=== PATIENT | male | born 1955 | race Caucasian/White ===

== ENCOUNTER 2018-12-21 08:18 | Inpatient (IN) | payer MEDICAID ==
[~2018-12-21] VITALS: Ht 156.5 cm; Wt 101.8 kg
[2018-12-21] MEDS ORDERED: AMLO10TA80 PO (12:06)
[2018-12-21] MEDS ORDERED: ATOR-2 PO (12:06)
[2018-12-21] MEDS ORDERED: CARV3.1242 PO (12:06)
[2018-12-21] MEDS ORDERED: GLIM4TAB2 PO (12:06)
[2018-12-21] MEDS ORDERED: CHLO25TA2 PO (12:06)
[2018-12-21] MEDS ORDERED: LISI40TA4 PO (12:06)
[2018-12-21] MEDS ORDERED: ASPI-1393 PO (12:06)
[2018-12-21] MEDS ORDERED: BACITRACIN 50,000 UNITS/VIAL ONE (19:46)
[2018-12-21] MEDS ORDERED: BUPIVACAINE HCL/PF 0.5% (5MG/ML) 10ML ONE (19:46)
[2018-12-21] MEDS ORDERED: LIDOCAINE HCL 1% 20ML VIAL (Pyxis) INJ ONE (19:46)
[2018-12-21] MEDS ORDERED: ROCURONIUM BROMIDE 10MG/ML VIAL 5ML IV ONE ×2 (19:49→21:06)
[2018-12-21] MEDS ORDERED: PROPOFOL 200MG/20ML VIAL IV ONE (19:49)
[2018-12-21] MEDS ORDERED: MIDAZOLAM HCL 2 MG/2 ML VIAL ONE (19:49)
[2018-12-21] MEDS ORDERED: FENTANYL CITRATE/PF 50MCG/ML 2ML VIAL ONE (19:49)
[2018-12-21] MEDS ORDERED: SODIUM CHLORIDE 0.9% 10ML VIAL ONE (20:00)
[2018-12-21] MEDS ORDERED: CEFAZOLIN SODIUM 1000MG/VIAL ONE (20:00)
[2018-12-21] MEDS ORDERED: LIDOCAINE HCL/PF 1% 10 MG/ML 5ML VIAL ONE (20:00)
[2018-12-21] MEDS ORDERED: ONDANSETRON HCL 4MG/2ML INJ ONE (20:05)
[2018-12-21] MEDS ORDERED: CEFOXITIN 2G in DEXTROSE 5% WATER 100ML IV NR (20:45)
[2018-12-21] MEDS ORDERED: GENTAMICIN SULF 40MG/ML 2ML VIAL ONE (20:49)
[2018-12-21] MEDS ORDERED: LEVOFLOXACIN 500MG PREMIX 100 ML IV ONE (20:49)
[2018-12-21] MEDS ORDERED: NEOSTIGMINE METHYLSULFATE 1MG/ML 10 ML VIAL ONE (22:11)
[2018-12-21] MEDS ORDERED: GLYCOPYRROLATE 0.2 MG/ML 2ML VIAL ONE (22:11)
[2018-12-21] MEDS ORDERED: HYDROMORPHONE HCL/PF 2MG/ML CPJ IV PRN ×2 (23:15→23:45)
[2018-12-21] MEDS ORDERED: MEPERIDINE HCL/PF 25MG/ML CPJ IV PRN (23:15)
[2018-12-21] MEDS ORDERED: METOCLOPRAMIDE HCL 10MG/2ML VIAL IV PRN (23:15)
[2018-12-21] MEDS ORDERED: DEXT 5%/0.45% NACL KCL 20MEQ/L 1,000 ML IV SCH (23:45)
[2018-12-21] MEDS ORDERED: ONDANSETRON HCL 4MG/2ML INJ IV PRN (23:45)
[2018-12-22] VITALS (45 sets, daily range): BP systolic 80–141; BP diastolic 39–85
[2018-12-22 00:12] LABS: BG CARBOXYHEMOGLOBIN 0.1 % (0.5-1.5); BG DEOXYHEMOGLOBIN 5.4 % (0.0-5.0); BG FRACTION INSPIRED OXYGEN 100; BG METHEMOGLOBIN 0.5 % (0.0-1.5); BG OXYGEN SATURATION 94.6 % (92.0-98.5); BG PCO2 > 183.4 mmHg (35.0-45.0); BG PH 6.731 (7.350-7.450); BG PO2 117.7 mmHg (75.0-100.0); BG SAMPLE SITE RIGHT RADIAL; BG TOTAL HEMOGLOBIN 15.2 g/dL (12.0-18.0); BG VENT MODE MASK - NRB
[2018-12-22] MEDS ORDERED: NALOXONE HCL 0.4 MG/ML 1ML VIAL ONE (00:13)
[2018-12-22] MEDS ORDERED: SODIUM BICARBONATE 8.4% MEQ/ML 50ML VIAL IV ONE (00:48)
[2018-12-22] MEDS ORDERED: SODIUM BICARBONATE 8.4% 1 MEQ/ML 50ML SYR IV ONE (01:00)
[2018-12-22 01:27] LABS: BASOPHILS % 0.4 % (0.0-2.0); HEMATOCRIT. 42.4 % (42.0-52.0); HEMOGLOBIN. 14.3 g/dL (14.0-18.0); LYMPHOCYTES % 14.4 % (20.0-50.0); MEAN CORPUSCULAR VOLUME 88.7 fL (80.0-94.0); MEAN PLATELET VOLUME 7.9 fl (7.4-10.4); MONOCYTES % 3.9 % (2.0-8.0); NEUTROPHILS % 80.3 % (40.0-76.0); PLATELET 294 x1000/uL (130-400); RED BLOOD CELL COUNT 4.78 mill/uL (4.7-6.1); RED CELL DISTRIBUTION WIDTH 13.2 % (11.6-14.6)
[2018-12-22] MEDS ORDERED: DEXTROSE 50% WATER 50ML SYRINGE IV PRN ×2 (01:45→08:00)
[2018-12-22 02:05] LABS: INR 1.1; PROTHROMBIN TIME 10.9 sec (9.6-11.0)
[2018-12-22] MEDS ORDERED: NALOXONE HCL 0.4 MG/ML 1ML VIAL IV SCH (02:30)
[2018-12-22 02:35] LABS: BG BASE EXCESS -12.8 mmol/L (-2.0-2.0); BG CARBOXYHEMOGLOBIN 0.6 % (0.5-1.5); BG DEOXYHEMOGLOBIN 8.4 % (0.0-5.0); BG FRACTION INSPIRED OXYGEN 100; BG HCO3 ACT 13.8 mmol/L (22.0-26.0); BG METHEMOGLOBIN 0.3 % (0.0-1.5); BG OXYGEN SATURATION 91.5 % (92.0-98.5); BG OXYHEMOGLOBIN 90.7 % (94.0-97.0); BG PCO2 34.4 mmHg (35.0-45.0); BG PH 7.221 (7.350-7.450); BG SAMPLE SITE RIGHT BRACHIAL; BG TIDAL VOLUME(mL) 700 mL; BG TOTAL HEMOGLOBIN 13.8 g/dL (12.0-18.0); BG VENT MODE VENT - A/C; BG VENT RATE 16 set
[2018-12-22] MEDS ORDERED: SODIUM BICARBONATE 8.4% 1 MEQ/ML 50ML SYR IV SCH ×2 (03:00)
[2018-12-22] MEDS: PROPOFOL 10MG/ML 100ML 100 ML IV PRN ×2 (03:22→08:51)
[2018-12-22] MEDS: DEXT 5%/0.45% NACL 1000ML 1,000 ML IV SCH ×3 (03:32→23:08)
[2018-12-22] MEDS ORDERED: IOHEXOL-350 100 ML BOTTLE ONE (04:18)
[2018-12-22] MEDS ORDERED: SODIUM CHLORIDE 0.9% 200 ML IV ONE (04:45)
[2018-12-22 05:03] LABS: BG BASE EXCESS -6.4 mmol/L (-2.0-2.0); BG CARBOXYHEMOGLOBIN 0.2 % (0.5-1.5); BG FRACTION INSPIRED OXYGEN 100; BG HCO3 ACT 17.7 mmol/L (22.0-26.0); BG METHEMOGLOBIN 0.3 % (0.0-1.5); BG OXYHEMOGLOBIN 98.5 % (94.0-97.0); BG PCO2 30.9 mmHg (35.0-45.0); BG PH 7.375 (7.350-7.450); BG PO2 180.1 mmHg (75.0-100.0); BG SAMPLE SITE RIGHT BRACHIAL; BG TIDAL VOLUME(mL) 700 mL; BG TOTAL HEMOGLOBIN 12.3 g/dL (12.0-18.0); BG VENT MODE VENT - A/C; BG VENT RATE 16 set
[2018-12-22] MEDS: KETOROLAC 30MG/ML VIAL IV SCH (05:22)
[2018-12-22] MEDS: METOCLOPRAMIDE HCL 10MG/2ML VIAL IV SCH ×4 (05:23→23:45)
[2018-12-22 05:42] LABS: HEMATOCRIT. 34.4 % (42.0-52.0); HEMOGLOBIN. 12.1 g/dL (14.0-18.0); MEAN CORPUSCULAR HEMOGLOBIN 30.4 pg (28.0-32.0); MEAN CORPUSCULAR VOLUME 86.5 fL (80.0-94.0); PLATELET 237 x1000/uL (130-400); RED BLOOD CELL COUNT 3.98 mill/uL (4.7-6.1); RED CELL DISTRIBUTION WIDTH 13.1 % (11.6-14.6)
[2018-12-22 05:48] LABS: INR 1.1; PARTIAL THROMBOPLASTIN TIME 26.1 sec (23.4-31.0)
[2018-12-22 05:49] LABS: CHLORIDE 114 mEq/L (98-107)
[2018-12-22] MEDS: BLOOD SUGAR DIAGNOSTIC STRIP TEST SCH ×4 (07:55→20:56)
[2018-12-22 08:51] LABS: BG BASE EXCESS -3.4 mmol/L (-2.0-2.0); BG CARBOXYHEMOGLOBIN 0.1 % (0.5-1.5); BG DEOXYHEMOGLOBIN 1.3 % (0.0-5.0); BG FRACTION INSPIRED OXYGEN 80; BG HCO3 ACT 20.5 mmol/L (22.0-26.0); BG METHEMOGLOBIN 0.4 % (0.0-1.5); BG OXYGEN SATURATION 98.7 % (92.0-98.5); BG OXYHEMOGLOBIN 98.2 % (94.0-97.0); BG PCO2 32.9 mmHg (35.0-45.0); BG PH 7.412 (7.350-7.450); BG PO2 174.6 mmHg (75.0-100.0); BG SAMPLE SITE RIGHT BRACHIAL; BG TIDAL VOLUME(mL) 700 mL; BG TOTAL HEMOGLOBIN 11.6 g/dL (12.0-18.0); BG VENT MODE VENT - A/C; BG VENT RATE 16 set
[2018-12-22] MEDS: INSULIN LISPRO 100 UNITS/ML SUBCUT SCH ×4 (08:51→20:57)
[2018-12-22] MEDS: CHLORTHALIDONE 25MG TABLET PO SCH (08:52)
[2018-12-22] MEDS: ASPIRIN 81MG EC TABLET PO SCH (08:52)
[2018-12-22] MEDS: GLIMEPIRIDE 2MG TABLET PO SCH (08:52)
[2018-12-22] MEDS: AMLODIPINE 10MG TABLET PO SCH (08:53)
[2018-12-22] MEDS: ENOXAPARIN 30MG/0.3ML SYR SUBCUT SCH ×2 (08:53→20:42)
[2018-12-22] MEDS: CARVEDILOL 3.125 MG TABLET PO SCH ×2 (08:53→20:44)
[2018-12-22] MEDS: LISINOPRIL 40MG TABLET PO SCH (08:54)
[2018-12-22] MEDS ORDERED: ENOXAPARIN 40MG/0.4ML SYR SUBCUT SCH (09:00)
[2018-12-22] MEDS ORDERED: GLIMEPIRIDE 4 MG PO SCH (09:00)
[2018-12-22] MEDS ORDERED: MEDICATION NOT ON FORMULARY EA (Atorvastatin Calcium 80 MG) PO SCH (09:00)
[2018-12-22 12:52] LABS: BG BASE EXCESS -3.8 mmol/L (-2.0-2.0); BG CARBOXYHEMOGLOBIN 0.3 % (0.5-1.5); BG DEOXYHEMOGLOBIN 2.9 % (0.0-5.0); BG FRACTION INSPIRED OXYGEN 50; BG HCO3 ACT 19.8 mmol/L (22.0-26.0); BG METHEMOGLOBIN 0.3 % (0.0-1.5); BG OXYGEN SATURATION 97.1 % (92.0-98.5); BG OXYHEMOGLOBIN 96.5 % (94.0-97.0); BG PCO2 31.4 mmHg (35.0-45.0); BG PH 7.418 (7.350-7.450); BG PO2 88.7 mmHg (75.0-100.0); BG PRESSURE SUPPORT 14; BG SAMPLE SITE RIGHT BRACHIAL; BG TIDAL VOLUME(mL) 700 mL; BG TOTAL HEMOGLOBIN 11.8 g/dL (12.0-18.0); BG VENT MODE VENT - SIMV; BG VENT RATE 10 set
[2018-12-22] MEDS ORDERED: MAGNESIUM 4 G PREMIX 100 ML IV NR (13:00)
[2018-12-22 13:20] LABS: PLATELET ESTIMATE NORMAL
[2018-12-22] MEDS: HYDROMORPHONE HCL/PF 2MG/ML CPJ IV PRN ×3 (13:42→23:40)
[2018-12-22] MEDS: PIPERACILLIN/TAZ 3.375G PREMIX 50 ML IV SCH ×2 (13:43→20:42)
[2018-12-22 15:58] LABS: BG BASE EXCESS -3.9 mmol/L (-2.0-2.0); BG CARBOXYHEMOGLOBIN 0.3 % (0.5-1.5); BG DEOXYHEMOGLOBIN 4.6 % (0.0-5.0); BG FRACTION INSPIRED OXYGEN 45; BG HCO3 ACT 20.5 mmol/L (22.0-26.0); BG METHEMOGLOBIN 0.1 % (0.0-1.5); BG OXYGEN SATURATION 95.4 % (92.0-98.5); BG PCO2 35.1 mmHg (35.0-45.0); BG PH 7.385 (7.350-7.450); BG PO2 76.6 mmHg (75.0-100.0); BG PRESSURE SUPPORT 10; BG SAMPLE SITE RIGHT BRACHIAL; BG TOTAL HEMOGLOBIN 12.1 g/dL (12.0-18.0); BG VENT MODE VENT - CPAP
[2018-12-22] MEDS: ALBUTEROL (0.083%) 2.5MG/3ML NEB HHN SCH (20:25)
[2018-12-22] MEDS: ATORVASTATIN CALCIUM 40MG TABLET PO SCH (20:42)
[2018-12-22 21:26] LABS: BG BASE EXCESS -4.2 mmol/L (-2.0-2.0); BG CARBOXYHEMOGLOBIN 0.3 % (0.5-1.5); BG DEOXYHEMOGLOBIN 7.5 % (0.0-5.0); BG FRACTION INSPIRED OXYGEN 50; BG HCO3 ACT 20.2 mmol/L (22.0-26.0); BG METHEMOGLOBIN 0.1 % (0.0-1.5); BG OXYGEN SATURATION 92.5 % (92.0-98.5); BG OXYHEMOGLOBIN 92.1 % (94.0-97.0); BG PCO2 34.7 mmHg (35.0-45.0); BG PH 7.382 (7.350-7.450); BG SAMPLE SITE RIGHT RADIAL; BG TOTAL HEMOGLOBIN 11.9 g/dL (12.0-18.0); BG VENT MODE MASK - AEROSOL
[2018-12-23] VITALS (48 sets, daily range): BP systolic 96–163; BP diastolic 50–85
[2018-12-23] MEDS: KETOROLAC 30MG/ML VIAL IV SCH ×3 (00:02→11:50)
[2018-12-23] MEDS: ALBUTEROL (0.083%) 2.5MG/3ML NEB HHN SCH ×6 (00:19→21:12)
[2018-12-23] MEDS: METOCLOPRAMIDE HCL 10MG/2ML VIAL IV SCH ×4 (05:10→23:09)
[2018-12-23] MEDS: PIPERACILLIN/TAZ 3.375G PREMIX 50 ML IV SCH (05:10)
[2018-12-23 05:16] LABS: BASOPHILS % 0.3 % (0.0-2.0); EOSINOPHILS % 0.1 % (0.0-5.0); HEMATOCRIT. 33.2 % (42.0-52.0); HEMOGLOBIN. 11.3 g/dL (14.0-18.0); LYMPHOCYTES % 9.5 % (20.0-50.0); MEAN CORPUSCULAR HEMOGLOBIN 30.3 pg (28.0-32.0); MEAN CORPUSCULAR VOLUME 88.7 fL (80.0-94.0); MEAN PLATELET VOLUME 7.9 fl (7.4-10.4); NEUTROPHILS % 83.1 % (40.0-76.0); PLATELET 180 x1000/uL (130-400); RED BLOOD CELL COUNT 3.74 mill/uL (4.7-6.1); RED CELL DISTRIBUTION WIDTH 13.5 % (11.6-14.6)
[2018-12-23] MEDS: BLOOD SUGAR DIAGNOSTIC STRIP TEST SCH ×4 (07:50→20:58)
[2018-12-23] MEDS ORDERED: POTASSIUM CHLORIDE INJ 40 MEQ in DEXT 5% WATER 250 ML IV NR (08:00)
[2018-12-23] MEDS: ENOXAPARIN 30MG/0.3ML SYR SUBCUT SCH ×2 (08:03→20:48)
[2018-12-23] MEDS: ASPIRIN 81MG EC TABLET PO SCH (08:04)
[2018-12-23] MEDS: CHLORTHALIDONE 25MG TABLET PO SCH (08:04)
[2018-12-23] MEDS: GLIMEPIRIDE 2MG TABLET PO SCH (08:04)
[2018-12-23] MEDS: INSULIN LISPRO 100 UNITS/ML SUBCUT SCH ×4 (08:04→21:01)
[2018-12-23] MEDS: DEXT 5%/0.45% NACL 1000ML 1,000 ML IV SCH ×2 (08:04→17:46)
[2018-12-23] MEDS: CARVEDILOL 3.125 MG TABLET PO SCH ×2 (08:05→20:48)
[2018-12-23] MEDS: LISINOPRIL 40MG TABLET PO SCH (08:05)
[2018-12-23] MEDS: AMLODIPINE 10MG TABLET PO SCH (08:05)
[2018-12-23 08:25] LABS: BG BASE EXCESS -2.5 mmol/L (-2.0-2.0); BG CARBOXYHEMOGLOBIN 0.1 % (0.5-1.5); BG DEOXYHEMOGLOBIN 6.2 % (0.0-5.0); BG FRACTION INSPIRED OXYGEN 60; BG HCO3 ACT 22.5 mmol/L (22.0-26.0); BG METHEMOGLOBIN 0.2 % (0.0-1.5); BG OXYGEN SATURATION 93.8 % (92.0-98.5); BG OXYHEMOGLOBIN 93.5 % (94.0-97.0); BG PCO2 39.2 mmHg (35.0-45.0); BG PH 7.376 (7.350-7.450); BG PO2 67.9 mmHg (75.0-100.0); BG SAMPLE SITE RIGHT BRACHIAL; BG TOTAL HEMOGLOBIN 11.2 g/dL (12.0-18.0); BG VENT MODE MASK - AEROSOL
[2018-12-23 09:56] LABS: ETHANOL BLOOD < 10 mg/dL
[2018-12-23 10:01] LABS: T4 FREE 1.73 ng/dL (0.76-1.46)
[2018-12-23 10:06] LABS: FOLIC ACID (FOLATE) SERUM 11.9 ng/mL (>5.38)
[2018-12-23] MEDS: PIPERACILLIN/TAZOBACTAM 2.25 G in DEXTROSE 5% WATER 50 ML IV SCH ×3 (11:50→23:10)
[2018-12-23 12:04] LABS: *AMPHETAMINES SCREEN URINE NEGATIVE (NEGATIVE); *BARBITURATES SCREEN URINE NEGATIVE (NEGATIVE)
[2018-12-23 12:05] LABS: *BENZODIAZEPINES SCREEN URINE PRESUMTIVE POSITIVE (NEGATIVE); *COCAINE SCREEN URINE NEGATIVE (NEGATIVE); METHADONE URINE SCREEN NEGATIVE (NEGATIVE); OPIATES URINE SCREEN PRESUMTIVE POSITIVE (NEGATIVE); PHENCYCLIDINE URINE SCREEN NEGATIVE (NEGATIVE)
[2018-12-23 12:06] LABS: CANNABINOID URINE SCREEN NEGATIVE (NEGATIVE)
[2018-12-23 13:01] LABS: BG BASE EXCESS -1.3 mmol/L (-2.0-2.0); BG CARBOXYHEMOGLOBIN 0.3 % (0.5-1.5); BG DEOXYHEMOGLOBIN 7.8 % (0.0-5.0); BG HCO3 ACT 22.9 mmol/L (22.0-26.0); BG METHEMOGLOBIN 0.4 % (0.0-1.5); BG OXYGEN SATURATION 92.1 % (92.0-98.5); BG OXYHEMOGLOBIN 91.5 % (94.0-97.0); BG PCO2 36.5 mmHg (35.0-45.0); BG PH 7.416 (7.350-7.450); BG PO2 60.5 mmHg (75.0-100.0); BG SAMPLE SITE RIGHT RADIAL; BG TOTAL HEMOGLOBIN 11.1 g/dL (12.0-18.0); BG VENT MODE NASAL CANNULA
[2018-12-23] MEDS ORDERED: LIDOCAINE HCL/PF 1% 2ML VIAL ONE (13:34)
[2018-12-23] MEDS ORDERED: ACETAMINOPHEN 325MG TABLET PO PRN (17:00)
[2018-12-23] MEDS: ATORVASTATIN CALCIUM 40MG TABLET PO SCH (20:47)
[2018-12-23] MEDS: HYDROMORPHONE HCL/PF 2MG/ML CPJ IV PRN (20:47)
[2018-12-23] MEDS ORDERED: POTASSIUM CHLORIDE INJ 40 MEQ in DEXT 5% WATER 250 ML IV SCH (22:30)
[2018-12-24] VITALS (29 sets, daily range): BP systolic 97–159; BP diastolic 55–116
[2018-12-24] MEDS: ALBUTEROL (0.083%) 2.5MG/3ML NEB HHN SCH ×6 (00:48→20:07)
[2018-12-24] MEDS: HYDROMORPHONE HCL/PF 2MG/ML CPJ IV PRN ×2 (03:40→20:12)
[2018-12-24] MEDS: DEXT 5%/0.45% NACL 1000ML 1,000 ML IV SCH (03:44)
[2018-12-24 05:23] LABS: BASOPHILS % 0.5 % (0.0-2.0); EOSINOPHILS % 1.5 % (0.0-5.0); HEMATOCRIT. 29.8 % (42.0-52.0); HEMOGLOBIN. 10.4 g/dL (14.0-18.0); LYMPHOCYTES % 9.5 % (20.0-50.0); MEAN CORPUSCULAR HEMOGLOBIN 30.3 pg (28.0-32.0); MEAN CORPUSCULAR VOLUME 86.7 fL (80.0-94.0); MEAN PLATELET VOLUME 7.9 fl (7.4-10.4); NEUTROPHILS % 81.5 % (40.0-76.0); PLATELET 202 x1000/uL (130-400); RED BLOOD CELL COUNT 3.44 mill/uL (4.7-6.1); RED CELL DISTRIBUTION WIDTH 13.1 % (11.6-14.6)
[2018-12-24] MEDS: METOCLOPRAMIDE HCL 10MG/2ML VIAL IV SCH (05:26)
[2018-12-24] MEDS: PIPERACILLIN/TAZOBACTAM 2.25 G in DEXTROSE 5% WATER 50 ML IV SCH ×3 (05:26→18:10)
[2018-12-24] MEDS: BLOOD SUGAR DIAGNOSTIC STRIP TEST SCH ×4 (07:50→21:00)
[2018-12-24] MEDS: ENOXAPARIN 30MG/0.3ML SYR SUBCUT SCH ×2 (08:44→20:26)
[2018-12-24] MEDS: INSULIN LISPRO 100 UNITS/ML SUBCUT SCH ×4 (08:45→21:00)
[2018-12-24] MEDS: LISINOPRIL 40MG TABLET PO SCH (08:45)
[2018-12-24] MEDS: GLIMEPIRIDE 2MG TABLET PO SCH (08:46)
[2018-12-24] MEDS: CARVEDILOL 3.125 MG TABLET PO SCH ×2 (08:46→21:00)
[2018-12-24] MEDS: AMLODIPINE 10MG TABLET PO SCH (08:46)
[2018-12-24] MEDS: ASPIRIN 81MG EC TABLET PO SCH (08:46)
[2018-12-24] MEDS: CHLORTHALIDONE 25MG TABLET PO SCH (08:46)
[2018-12-24 09:04] LABS: BG BASE EXCESS -1.1 mmol/L (-2.0-2.0); BG CARBOXYHEMOGLOBIN 0.3 % (0.5-1.5); BG DEOXYHEMOGLOBIN 4.9 % (0.0-5.0); BG FRACTION INSPIRED OXYGEN 32; BG HCO3 ACT 23.7 mmol/L (22.0-26.0); BG METHEMOGLOBIN 0.2 % (0.0-1.5); BG OXYGEN SATURATION 95.1 % (92.0-98.5); BG OXYHEMOGLOBIN 94.6 % (94.0-97.0); BG PCO2 40.3 mmHg (35.0-45.0); BG PH 7.388 (7.350-7.450); BG SAMPLE SITE LEFT BRACHIAL; BG TOTAL HEMOGLOBIN 11.1 g/dL (12.0-18.0); BG VENT MODE NASAL CANNULA
[2018-12-24] MEDS: TRAMADOL 50MG TABLET PO PRN (09:14)
[2018-12-24] MEDS ORDERED: POTASSIUM CHLORIDE INJ 40 MEQ in DEXT 5% WATER 250 ML IV NR (10:00)
[2018-12-24 10:57] LABS: CLARITY URINE CLOUDY (CLEAR); COLOR URINE YELLOW (YELLOW); KETONES URINE NEGATIVE (NEGATIVE); LEUKOCYTE ESTERASE URINE NEGATIVE (NEGATIVE); NITRITE URINE NEGATIVE (NEGATIVE); OCCULT BLOOD URINE 1+ (NEGATIVE); PROTEIN URINE 1+ (NEGATIVE); SPECIFIC GRAVITY URINE 1.014 (1.005-1.030); UROBILINOGEN URINE 0.2 E.U./dL (0.2-1.0)
[2018-12-24] MEDS: ATORVASTATIN CALCIUM 40MG TABLET PO SCH (20:26)
[2018-12-25] VITALS (12 sets, daily range): BP systolic 119–166; BP diastolic 55–99
[2018-12-25] MEDS: ALBUTEROL (0.083%) 2.5MG/3ML NEB HHN SCH ×6 (00:03→22:20)
[2018-12-25] MEDS: PIPERACILLIN/TAZOBACTAM 2.25 G in DEXTROSE 5% WATER 50 ML IV SCH ×4 (02:39→18:08)
[2018-12-25 07:36] LABS: BASOPHILS % 0.3 % (0.0-2.0); EOSINOPHILS % 1.5 % (0.0-5.0); HEMATOCRIT. 30.8 % (42.0-52.0); HEMOGLOBIN. 10.8 g/dL (14.0-18.0); LYMPHOCYTES % 9.7 % (20.0-50.0); MEAN CORPUSCULAR HEMOGLOBIN 30.3 pg (28.0-32.0); MEAN PLATELET VOLUME 7.8 fl (7.4-10.4); MONOCYTES % 7.2 % (2.0-8.0); NEUTROPHILS % 81.3 % (40.0-76.0); PLATELET 240 x1000/uL (130-400); RED BLOOD CELL COUNT 3.58 mill/uL (4.7-6.1); RED CELL DISTRIBUTION WIDTH 12.8 % (11.6-14.6)
[2018-12-25 07:58] LABS: PHOSPHORUS 2.5 mg/dL (2.5-4.9)
[2018-12-25] MEDS: INSULIN LISPRO 100 UNITS/ML SUBCUT SCH ×4 (08:00→22:13)
[2018-12-25] MEDS: BLOOD SUGAR DIAGNOSTIC STRIP TEST SCH ×4 (08:09→21:00)
[2018-12-25] MEDS: TRAMADOL 50MG TABLET PO PRN ×2 (09:05→19:37)
[2018-12-25] MEDS: GLIMEPIRIDE 2MG TABLET PO SCH (09:06)
[2018-12-25] MEDS: ASPIRIN 81MG EC TABLET PO SCH (09:06)
[2018-12-25] MEDS: CARVEDILOL 3.125 MG TABLET PO SCH ×2 (09:06→19:39)
[2018-12-25] MEDS: ENOXAPARIN 30MG/0.3ML SYR SUBCUT SCH ×2 (09:07→22:14)
[2018-12-25] MEDS: LISINOPRIL 40MG TABLET PO SCH (09:07)
[2018-12-25] MEDS: AMLODIPINE 10MG TABLET PO SCH (09:07)
[2018-12-25] MEDS ORDERED: POTASSIUM CHLORIDE 20MEQ TABLET SR PO SCH (11:00)
[2018-12-25] MEDS ORDERED: POTASSIUM CHLORIDE INJ 40 MEQ in DEXT 5% WATER 250 ML IV SCH (12:00)
[2018-12-25] MEDS ORDERED: IPRATROPIUM/ALBUTEROL 0.5-3(2.5)MG/3ML NEB HHN PRN (14:00)
[2018-12-25] MEDS: ACETYLCYSTEINE 100MG/ML 10% VIAL 4ML INH SCH ×2 (14:59→22:21)
[2018-12-25] MEDS: ATORVASTATIN CALCIUM 40MG TABLET PO SCH (22:14)
[2018-12-25] MEDS ORDERED: POTASSIUM CHLORIDE 20MEQ TABLET SR PO NR (22:53)
[2018-12-26] VITALS (11 sets, daily range): BP systolic 125–153; BP diastolic 46–75
[2018-12-26] MEDS: PIPERACILLIN/TAZOBACTAM 2.25 G in DEXTROSE 5% WATER 50 ML IV SCH ×4 (01:05→18:53)
[2018-12-26] MEDS: ALBUTEROL (0.083%) 2.5MG/3ML NEB HHN SCH ×6 (02:13→20:29)
[2018-12-26 06:05] LABS: BASOPHILS % 0.4 % (0.0-2.0); EOSINOPHILS % 1.2 % (0.0-5.0); HEMATOCRIT. 30.7 % (42.0-52.0); HEMOGLOBIN. 10.8 g/dL (14.0-18.0); LYMPHOCYTES % 7.7 % (20.0-50.0); MEAN CORPUSCULAR HEMOGLOBIN 29.8 pg (28.0-32.0); MEAN CORPUSCULAR VOLUME 84.8 fL (80.0-94.0); MEAN PLATELET VOLUME 7.9 fl (7.4-10.4); MONOCYTES % 9.4 % (2.0-8.0); NEUTROPHILS % 81.3 % (40.0-76.0); PLATELET 273 x1000/uL (130-400); RED BLOOD CELL COUNT 3.62 mill/uL (4.7-6.1); RED CELL DISTRIBUTION WIDTH 12.9 % (11.6-14.6)
[2018-12-26 06:54] LABS: CHLORIDE 102 mEq/L (98-107)
[2018-12-26 07:00] LABS: PHOSPHORUS 1.8 mg/dL (2.5-4.9)
[2018-12-26 07:02] LABS: CREATINE KINASE 285 IU/L (39-308)
[2018-12-26] MEDS: BLOOD SUGAR DIAGNOSTIC STRIP TEST SCH ×4 (07:30→20:56)
[2018-12-26] MEDS: ACETYLCYSTEINE 100MG/ML 10% VIAL 4ML INH SCH (07:59)
[2018-12-26] MEDS: GLIMEPIRIDE 2MG TABLET PO SCH (09:18)
[2018-12-26] MEDS: ENOXAPARIN 30MG/0.3ML SYR SUBCUT SCH ×2 (09:18→20:56)
[2018-12-26] MEDS: AMLODIPINE 10MG TABLET PO SCH (09:19)
[2018-12-26] MEDS: LISINOPRIL 40MG TABLET PO SCH (09:19)
[2018-12-26] MEDS: CARVEDILOL 3.125 MG TABLET PO SCH (09:19)
[2018-12-26] MEDS: ASPIRIN 81MG EC TABLET PO SCH (09:19)
[2018-12-26] MEDS: INSULIN LISPRO 100 UNITS/ML SUBCUT SCH ×4 (09:21→20:56)
[2018-12-26] MEDS ORDERED: POTASSIUM CHLORIDE 20MEQ/PACKET PO SCH (12:00)
[2018-12-26] MEDS ORDERED: POTASSIUM CHLORIDE INJ 40 MEQ in DEXT 5% WATER 250 ML IV ONE (12:30)
[2018-12-26] MEDS ORDERED: POTASSIUM PHOS,M-BASIC-D-BASIC 20 MMOL in DEXT 5% WATER 243.3333 ML IV SCH (15:00)
[2018-12-26] MEDS: ATORVASTATIN CALCIUM 40MG TABLET PO SCH (20:55)
[2018-12-26] MEDS: CARVEDILOL 12.5MG TABLET PO SCH (20:55)
[2018-12-26] MEDS: GUAIFENESIN 600MG ER TABLET PO SCH (20:55)
[2018-12-27] VITALS (14 sets, daily range): BP systolic 99–150; BP diastolic 47–89
[2018-12-27] MEDS: PIPERACILLIN/TAZOBACTAM 2.25 G in DEXTROSE 5% WATER 50 ML IV SCH ×4 (00:04→18:27)
[2018-12-27] MEDS: ALBUTEROL (0.083%) 2.5MG/3ML NEB HHN SCH ×6 (00:41→20:12)
[2018-12-27 05:58] LABS: BASOPHILS % 0.4 % (0.0-2.0); EOSINOPHILS % 2.5 % (0.0-5.0); HEMATOCRIT. 29.8 % (42.0-52.0); HEMOGLOBIN. 10.6 g/dL (14.0-18.0); MEAN CORPUSCULAR VOLUME 84.4 fL (80.0-94.0); MEAN PLATELET VOLUME 8.1 fl (7.4-10.4); MONOCYTES % 11.1 % (2.0-8.0); PLATELET 259 x1000/uL (130-400); RED BLOOD CELL COUNT 3.53 mill/uL (4.7-6.1); RED CELL DISTRIBUTION WIDTH 12.8 % (11.6-14.6)
[2018-12-27 06:49] LABS: CHLORIDE 100 mEq/L (98-107)
[2018-12-27 07:01] LABS: PHOSPHORUS 2.5 mg/dL (2.5-4.9)
[2018-12-27] MEDS: BLOOD SUGAR DIAGNOSTIC STRIP TEST SCH ×4 (07:30→21:34)
[2018-12-27] MEDS: INSULIN LISPRO 100 UNITS/ML SUBCUT SCH ×4 (08:00→21:00)
[2018-12-27] MEDS: AMLODIPINE 10MG TABLET PO SCH (08:32)
[2018-12-27] MEDS: CARVEDILOL 12.5MG TABLET PO SCH ×2 (08:32→21:33)
[2018-12-27] MEDS: GUAIFENESIN 600MG ER TABLET PO SCH ×2 (08:32→21:33)
[2018-12-27] MEDS: ASPIRIN 81MG EC TABLET PO SCH (08:32)
[2018-12-27] MEDS: LISINOPRIL 40MG TABLET PO SCH (08:33)
[2018-12-27] MEDS: GLIMEPIRIDE 2MG TABLET PO SCH (08:33)
[2018-12-27] MEDS: ENOXAPARIN 30MG/0.3ML SYR SUBCUT SCH ×2 (08:33→21:34)
[2018-12-27] MEDS ORDERED: POTASSIUM CHLORIDE 20MEQ/PACKET PO NR ×2 (08:45→12:00)
[2018-12-27] MEDS ORDERED: MAGNESIUM 4 G PREMIX 100 ML IV NR (14:30)
[2018-12-27] MEDS ORDERED: POTASSIUM CHLORIDE INJ 40 MEQ in DEXT 5% WATER 250 ML IV SCH (18:00)
[2018-12-27] MEDS: ATORVASTATIN CALCIUM 40MG TABLET PO SCH (21:33)
[2018-12-27] MEDS: MAGNESIUM OXIDE 400MG TABLET PO SCH (21:33)
[2018-12-27] MEDS ORDERED: POTASSIUM CHLORIDE INJ 40 MEQ in SODIUM CHLORIDE 0.45% 1,000 ML IV SCH (22:00)
[2018-12-28] VITALS (10 sets, daily range): BP systolic 93–127; BP diastolic 41–75
[2018-12-28] MEDS: PIPERACILLIN/TAZOBACTAM 2.25 G in DEXTROSE 5% WATER 50 ML IV SCH ×5 (00:26→23:51)
[2018-12-28] MEDS: ALBUTEROL (0.083%) 2.5MG/3ML NEB HHN SCH ×6 (01:26→20:38)
[2018-12-28 06:58] LABS: BG BASE EXCESS 0.8 mmol/L (-2.0-2.0); BG CARBOXYHEMOGLOBIN 0.3 % (0.5-1.5); BG DEOXYHEMOGLOBIN 8.3 % (0.0-5.0); BG HCO3 ACT 24.3 mmol/L (22.0-26.0); BG METHEMOGLOBIN 0.3 % (0.0-1.5); BG OXYGEN SATURATION 91.6 % (92.0-98.5); BG OXYHEMOGLOBIN 91.1 % (94.0-97.0); BG PCO2 34.6 mmHg (35.0-45.0); BG PH 7.464 (7.350-7.450); BG PO2 61.6 mmHg (75.0-100.0); BG SAMPLE SITE RIGHT RADIAL; BG TOTAL HEMOGLOBIN 10.3 g/dL (12.0-18.0); BG VENT MODE ROOM AIR
[2018-12-28] MEDS: BLOOD SUGAR DIAGNOSTIC STRIP TEST SCH ×4 (07:32→21:00)
[2018-12-28] MEDS: INSULIN LISPRO 100 UNITS/ML SUBCUT SCH ×4 (08:00→21:00)
[2018-12-28 08:43] LABS: BASOPHILS % 0.5 % (0.0-2.0); EOSINOPHILS % 2.2 % (0.0-5.0); HEMATOCRIT. 29.1 % (42.0-52.0); HEMOGLOBIN. 10.3 g/dL (14.0-18.0); LYMPHOCYTES % 8.9 % (20.0-50.0); MEAN CORPUSCULAR HEMOGLOBIN 29.8 pg (28.0-32.0); MEAN CORPUSCULAR VOLUME 84.6 fL (80.0-94.0); MEAN PLATELET VOLUME 7.6 fl (7.4-10.4); MONOCYTES % 10.2 % (2.0-8.0); NEUTROPHILS % 78.2 % (40.0-76.0); PLATELET 282 x1000/uL (130-400); RED BLOOD CELL COUNT 3.44 mill/uL (4.7-6.1)
[2018-12-28] MEDS: ENOXAPARIN 30MG/0.3ML SYR SUBCUT SCH ×2 (08:43→22:18)
[2018-12-28] MEDS: GLIMEPIRIDE 2MG TABLET PO SCH (08:44)
[2018-12-28] MEDS: MAGNESIUM OXIDE 400MG TABLET PO SCH ×2 (08:44→22:18)
[2018-12-28] MEDS: ASPIRIN 81MG EC TABLET PO SCH (08:44)
[2018-12-28] MEDS: GUAIFENESIN 600MG ER TABLET PO SCH ×2 (08:44→22:17)
[2018-12-28] MEDS: POTASSIUM CHLORIDE 20MEQ TABLET SR PO SCH ×2 (08:44→17:26)
[2018-12-28] MEDS: AMLODIPINE 10MG TABLET PO SCH (08:45)
[2018-12-28] MEDS: LISINOPRIL 40MG TABLET PO SCH (08:45)
[2018-12-28 08:58] LABS: PHOSPHORUS 2.4 mg/dL (2.5-4.9)
[2018-12-28] MEDS ORDERED: POTASSIUM CHLORIDE 20MEQ TABLET SR PO NR ×2 (10:00→23:00)
[2018-12-28] MEDS: CARVEDILOL 12.5MG TABLET PO SCH ×2 (10:48→22:17)
[2018-12-28] MEDS ORDERED: POTASSIUM PHOS,M-BASIC-D-BASIC 20 MMOL in DEXT 5% WATER 243.3333 ML IV NR (11:30)
[2018-12-28] MEDS ORDERED: COR12 PO (13:52)
[2018-12-28] MEDS ORDERED: POTA20TA82 PO (13:52)
[2018-12-28] MEDS: ATORVASTATIN CALCIUM 40MG TABLET PO SCH (22:17)
[2018-12-29] VITALS: BP 127/66
[2018-12-29] MEDS: ALBUTEROL (0.083%) 2.5MG/3ML NEB HHN SCH ×4 (00:12→12:51)
[2018-12-29 04:00] VITALS: BP 118/58
[2018-12-29] MEDS: PIPERACILLIN/TAZOBACTAM 2.25 G in DEXTROSE 5% WATER 50 ML IV SCH ×3 (06:02→17:00)
[2018-12-29 07:19] LABS: BASOPHILS % 0.5 % (0.0-2.0); EOSINOPHILS % 3.4 % (0.0-5.0); HEMATOCRIT. 29.5 % (42.0-52.0); HEMOGLOBIN. 10.4 g/dL (14.0-18.0); LYMPHOCYTES % 12.9 % (20.0-50.0); MEAN CORPUSCULAR HEMOGLOBIN 30.3 pg (28.0-32.0); MEAN CORPUSCULAR VOLUME 85.5 fL (80.0-94.0); MEAN PLATELET VOLUME 8.1 fl (7.4-10.4); MONOCYTES % 13.5 % (2.0-8.0); NEUTROPHILS % 69.7 % (40.0-76.0); PLATELET 300 x1000/uL (130-400); RED BLOOD CELL COUNT 3.45 mill/uL (4.7-6.1); RED CELL DISTRIBUTION WIDTH 12.8 % (11.6-14.6)
[2018-12-29] MEDS: BLOOD SUGAR DIAGNOSTIC STRIP TEST SCH ×3 (07:30→17:00)
[2018-12-29] MEDS: INSULIN LISPRO 100 UNITS/ML SUBCUT SCH ×3 (08:00→17:01)
[2018-12-29 08:02] VITALS: BP 129/68
[2018-12-29 08:35] LABS: CHLORIDE 106 mEq/L (98-107)
[2018-12-29 08:41] LABS: PHOSPHORUS 2.9 mg/dL (2.5-4.9)
[2018-12-29] MEDS ORDERED: POTASSIUM CHLORIDE 20MEQ TABLET SR PO NR (09:15)
[2018-12-29] MEDS: MAGNESIUM OXIDE 400MG TABLET PO SCH (09:26)
[2018-12-29] MEDS: POTASSIUM CHLORIDE 20MEQ TABLET SR PO SCH ×2 (09:26→17:00)
[2018-12-29] MEDS: ASPIRIN 81MG EC TABLET PO SCH (09:26)
[2018-12-29] MEDS: GUAIFENESIN 600MG ER TABLET PO SCH (09:27)
[2018-12-29] MEDS: GLIMEPIRIDE 2MG TABLET PO SCH (09:27)
[2018-12-29] MEDS: ENOXAPARIN 30MG/0.3ML SYR SUBCUT SCH (09:28)
[2018-12-29] MEDS: CARVEDILOL 12.5MG TABLET PO SCH (09:28)
[2018-12-29 10:03] VITALS: BP 128/65
[2018-12-29] MEDS: AMLODIPINE 10MG TABLET PO SCH (10:08)
[2018-12-29] MEDS: LISINOPRIL 40MG TABLET PO SCH (10:08)
[2018-12-29 12:00] VITALS: BP 145/76
[2018-12-29 16:17] VITALS: BP 120/72
== END 2018-12-29 18:15 | disposition home or self-care (01) | DRG 230 ==
LOC: OR 08:18 → CVICU 18:00 → 5EST 12-24 12:55
PROVIDERS: ADMIT Specialist; ATTEND Specialist
PROC: 0DBB0ZZ Excision of Ileum, Open Approach (ICD-10-PCS; principal; 2018-12-21)
DX: Z43.2 Encounter for attention to ileostomy (principal); J95.821 Acute postprocedural respiratory failure; G92 Toxic encephalopathy; E44.0 Moderate protein-calorie malnutrition; E11.22 Type 2 diabetes mellitus with diabetic chronic kidney disease; I95.9 Hypotension, unspecified; N17.9 Acute kidney failure, unspecified; E87.2 Acidosis; E44.1 Mild protein-calorie malnutrition; N18.3 Chronic kidney disease, stage 3 (moderate); Y83.8 Other surgical procedures as the cause of abnormal reaction of the patient, or of later complication, without mention of misadventure at the time of the procedure; Y92.239 Unspecified place in hospital as the place of occurrence of the external cause; E78.00 Pure hypercholesterolemia, unspecified; E78.5 Hyperlipidemia, unspecified; E87.6 Hypokalemia; I44.30 Unspecified atrioventricular block; I12.9 Hypertensive chronic kidney disease with stage 1 through stage 4 chronic kidney disease, or unspecified chronic kidney disease; D64.9 Anemia, unspecified; R33.9 Retention of urine, unspecified; E83.42 Hypomagnesemia; J98.11 Atelectasis; N35.919 Unspecified urethral stricture, male, unspecified site; Z82.49 Family history of ischemic heart disease and other diseases of the circulatory system; Z83.3 Family history of diabetes mellitus; Z95.0 Presence of cardiac pacemaker; Z86.73 Personal history of transient ischemic attack (TIA), and cerebral infarction without residual deficits; Z79.84 Long term (current) use of oral hypoglycemic drugs; Z79.899 Other long term (current) drug therapy
CPT/HCPCS: 36415; 36600; 71045; 71275; 76770; 80048; 80305; 80320; 81003; 82140; 82248; 82375; 82550; 82607; 82746; 82805; 82962; 83036; 83605; 83735; 84100; 84132; 84133; 84439; 84443; 84478; 84481; 87070; 88305; 93005; 94002; 94640; C1893; J0690; J0694; J1170; J1580; J1650; J1815; J1885; J1956; J2250; J2310; J2405; J2543; J2704; J2710; J2765; J3010; J3475; J3480; J3490; J7060; J7608; J7611; J7620; Q9967; G0480

== ENCOUNTER 2019-01-10 14:43 | Inpatient (IN) | payer MEDICAID ==
[~2019-01-10] VITALS: Ht 193 cm; Wt 96.7 kg
[~2019-01-10 14:43] MED LIST: AMLO10TA80 PO; ASPI-1393 PO; ATOR-2 PO; COR12 PO; GLIM4TAB2 PO; LISI40TA4 PO; POTA20TA82 PO
[2019-01-10] MEDS ORDERED: DEXT 5%/LACTATED RINGERS 1,000 ML IV ONE (17:00)
[2019-01-10 17:45] LABS: BASOPHILS % 0.7 % (0.0-2.0); EOSINOPHILS % 3.1 % (0.0-5.0); HEMATOCRIT. 35.4 % (42.0-52.0); HEMOGLOBIN. 12.1 g/dL (14.0-18.0); LYMPHOCYTES % 17.6 % (20.0-50.0); MEAN CORPUSCULAR HEMOGLOBIN 29.4 pg (28.0-32.0); MEAN PLATELET VOLUME 7.7 fl (7.4-10.4); MONOCYTES % 8.9 % (2.0-8.0); NEUTROPHILS % 69.7 % (40.0-76.0); PLATELET 353 x1000/uL (130-400); RED BLOOD CELL COUNT 4.12 mill/uL (4.7-6.1)
[2019-01-10] MEDS ORDERED: LIDOCAINE HCL 1% 20ML VIAL (Pyxis) INJ ONE (17:45)
[2019-01-10] MEDS ORDERED: BUPIVACAINE HCL/PF 0.5% (5MG/ML) 10ML ONE ×2 (17:45→17:46)
[2019-01-10] MEDS ORDERED: BACITRACIN 50,000 UNITS/VIAL ONE (17:46)
[2019-01-10 17:52] LABS: CHLORIDE 104 mEq/L (98-107)
[2019-01-10] MEDS ORDERED: PROPOFOL 200MG/20ML VIAL IV ONE (19:04)
[2019-01-10] MEDS ORDERED: MIDAZOLAM HCL 5 MG/5 ML VIAL ONE (19:04)
[2019-01-10] MEDS ORDERED: SUCCINYLCHOLINE CHLORIDE 200MG/10ML IV ONE (19:04)
[2019-01-10] MEDS ORDERED: CEFAZOLIN SODIUM 1000MG/VIAL ONE (19:05)
[2019-01-10] MEDS ORDERED: ACETAMINOPHEN 325MG TABLET PO PRN (19:45)
[2019-01-10] MEDS ORDERED: HYDROCODONE/ACETAMINOPHEN 5/325MG TABLET PO PRN (19:45)
[2019-01-10] MEDS ORDERED: IPRATROPIUM/ALBUTEROL 0.5-3(2.5)MG/3ML NEB HHN PRN (19:45)
[2019-01-10] MEDS ORDERED: LORAZEPAM 0.5MG TABLET PO PRN (19:45)
[2019-01-10] MEDS ORDERED: ONDANSETRON HCL 4MG/2ML INJ IV PRN (19:45)
[2019-01-10] MEDS ORDERED: CLONIDINE 0.1MG TABLET PO PRN (19:45)
[2019-01-10] MEDS ORDERED: CARVEDILOL 12.5MG TABLET PO SCH (21:00)
[2019-01-10] MEDS ORDERED: MORPHINE SULFATE 2 MG/ML CPJ (NOT FOR IM USE) IV PRN (21:17)
[2019-01-10] MEDS ORDERED: LACTATED RINGERS 1,000 ML IV SCH (23:00)
[2019-01-10] MEDS ORDERED: AMLODIPINE 10MG TABLET PO NR (23:00)
[2019-01-10] MEDS ORDERED: DEXTROSE 50% WATER 50ML SYRINGE IV PRN (23:45)
[2019-01-11] VITALS (7 sets, daily range): BP systolic 97–126; BP diastolic 44–62
[2019-01-11] MEDS: GLIMEPIRIDE 2MG TABLET PO SCH (06:31)
[2019-01-11] MEDS: BLOOD SUGAR DIAGNOSTIC STRIP TEST SCH ×4 (06:39→21:00)
[2019-01-11 07:12] LABS: BASOPHILS % 0.6 % (0.0-2.0); EOSINOPHILS % 3.3 % (0.0-5.0); HEMATOCRIT. 29.3 % (42.0-52.0); HEMOGLOBIN. 10.4 g/dL (14.0-18.0); LYMPHOCYTES % 18.2 % (20.0-50.0); MEAN CORPUSCULAR HEMOGLOBIN 30.8 pg (28.0-32.0); MEAN CORPUSCULAR VOLUME 86.3 fL (80.0-94.0); MEAN PLATELET VOLUME 7.9 fl (7.4-10.4); NEUTROPHILS % 68.9 % (40.0-76.0); PLATELET 287 x1000/uL (130-400); RED BLOOD CELL COUNT 3.39 mill/uL (4.7-6.1)
[2019-01-11 07:33] LABS: CHLORIDE 108 mEq/L (98-107)
[2019-01-11 07:40] LABS: LDL CHOLESTEROL 60 mg/dL (5-100)
[2019-01-11 07:42] LABS: HDL CHOLESTEROL 25 mg/dL (40-59)
[2019-01-11] MEDS: INSULIN LISPRO 100 UNITS/ML SUBCUT SCH ×4 (07:50→21:00)
[2019-01-11] MEDS: ASPIRIN 81MG TABLET PO SCH (08:53)
[2019-01-11] MEDS: CARVEDILOL 12.5MG TABLET PO SCH ×2 (08:54→17:53)
[2019-01-11] MEDS: LISINOPRIL 40MG TABLET PO SCH (08:55)
[2019-01-11] MEDS: AMLODIPINE 5MG TABLET PO SCH ×2 (08:55→22:06)
[2019-01-11] MEDS ORDERED: ATORVASTATIN CALCIUM 40MG TABLET PO SCH (21:00)
[2019-01-12] VITALS: BP 122/58
[2019-01-12 04:00] VITALS: BP 120/56
[2019-01-12] MEDS: GLIMEPIRIDE 2MG TABLET PO SCH ×2 (06:04→06:23)
[2019-01-12] MEDS ORDERED: MAGNESIUM CITRATE 300ML SOLUTION PO NR (07:00)
[2019-01-12] MEDS: INSULIN LISPRO 100 UNITS/ML SUBCUT SCH ×2 (07:50→12:50)
[2019-01-12] MEDS: BLOOD SUGAR DIAGNOSTIC STRIP TEST SCH ×2 (08:15→12:20)
[2019-01-12] MEDS: ASPIRIN 81MG TABLET PO SCH (08:57)
[2019-01-12] MEDS: CARVEDILOL 12.5MG TABLET PO SCH (08:57)
[2019-01-12] MEDS: LISINOPRIL 40MG TABLET PO SCH (08:57)
[2019-01-12] MEDS: AMLODIPINE 5MG TABLET PO SCH (08:58)
[2019-01-12 15:18] VITALS: BP 122/95
== END 2019-01-12 17:55 | disposition home health service (06) | DRG 721 ==
LOC: ER 14:43 → 6EST 17:10 → EDBEDREQ 17:16 → EDBEDREQSVC 17:16 → ENRESERV 18:35
PROVIDERS: ADMIT Internal Medicine; ATTEND Internal Medicine
PROC: 0JB80ZZ Excision of Abdomen Subcutaneous Tissue and Fascia, Open Approach (ICD-10-PCS; principal; 2019-01-10)
DX: T81.41XA Infection following a procedure, superficial incisional surgical site, initial encounter (principal); T81.32XA Disruption of internal operation (surgical) wound, not elsewhere classified, initial encounter; E11.22 Type 2 diabetes mellitus with diabetic chronic kidney disease; N18.3 Chronic kidney disease, stage 3 (moderate); D64.9 Anemia, unspecified; E78.00 Pure hypercholesterolemia, unspecified; Y83.8 Other surgical procedures as the cause of abnormal reaction of the patient, or of later complication, without mention of misadventure at the time of the procedure; I12.9 Hypertensive chronic kidney disease with stage 1 through stage 4 chronic kidney disease, or unspecified chronic kidney disease; E78.5 Hyperlipidemia, unspecified; K59.00 Constipation, unspecified; N35.919 Unspecified urethral stricture, male, unspecified site; Z86.73 Personal history of transient ischemic attack (TIA), and cerebral infarction without residual deficits; Z90.49 Acquired absence of other specified parts of digestive tract; Y92.89 Other specified places as the place of occurrence of the external cause; Z79.899 Other long term (current) drug therapy; Z93.2 Ileostomy status; Z93.3 Colostomy status; Z95.0 Presence of cardiac pacemaker; Z79.84 Long term (current) use of oral hypoglycemic drugs
CPT/HCPCS: 36415; 80048; 80061; 82962; 99285; J0330; J0690; J2250; J2704; J3490; J7121